=== PATIENT | male | born 1970 | race Caucasian/White ===

== ENCOUNTER 2019-04-22 13:54 | Outpatient (CLI) | payer BC | END 2019-04-22 23:59 | disposition home or self-care (01) | LOC: STAR 13:54 | PROVIDERS: ATTEND Orthopaedic Surgery | DX: Z01.818 Encounter for other preprocedural examination (principal); M16.11 Unilateral primary osteoarthritis, right hip | CPT/HCPCS: 36415; 80053; 85025; 87081; 93005 ==